=== PATIENT | male | born 1980 | race Caucasian/White ===

== ENCOUNTER 2019-09-30 17:35 | Inpatient (IN) | payer OTHER ==
[~2019-09-30] VITALS: Ht 180.3 cm; Wt 93.4 kg
[~2019-09-30 17:35] MED LIST: ADDERALL 20 MG20 M1 PO; HYDROCODONE-APA1 TAB PO; PERCOCET 10/3251 TA1 PO
[2019-09-30] MEDS ORDERED: LISINOPRIL10 MG PO (17:38)
[2019-09-30] MEDS ORDERED: FUROSEMIDE20 MG PO (17:38)
[2019-09-30] MEDS ORDERED: KLOR-CON 1010 MEQ PO (17:39)
--- NOTE | 2019-09-30 18:11 | NUR ---
PT REFUSED IV MORPHINE AT THIS TIME. PT STATES "MORPHINE DOESN'T WORK FOR ME. DILAUDID DOES." EDP NOTIFIED.
[2019-09-30 18:14] LABS: BASOPHILS 0.2 % (0-2); EOSINOPHILS 0.2 % (0-7); HEMATOCRIT 41.5 % (42.0-54.0); HEMOGLOBIN 14.3 g/dL (13.5-17.5); IMMATURE GRANULOCYTES 0.3 % (0-5); LYMPHOCYTES 12.1 % (15-50); MCH 41.1 pg (26.0-34.0); MCHC 34.5 g/dL (31.0-37.0); MCV 119.3 fL (80.0-100.0); MONOCYTES 4.7 % (2-11); NEUTROPHILS 82.5 % (40-80); PLATELET COUNT 205 10x3/uL (130-400); RBC 3.48 10x6/uL (4.20-6.10); RDW 14.6 % (11.5-14.5); WBC 18.8 10x3/uL (4.8-10.8)
[2019-09-30 18:20] VITALS: BP 145/55
--- NOTE | 2019-09-30 18:21 | NUR ---
PT SHIVERING , AND CRYING, VERY UPSET. EXPLAIN HE MIGHT BE SPIKING A TEMP. IT IS 99.5 AT THIS TIME. WILL CONT. TO MONITOR.
[2019-09-30 18:29] LABS: ALKALINE PHOSPHATASE 240 U/L (30-120); ALT (SGPT) 33 U/L (10-68); AMYLASE - SERUM 13 U/L (25-115); BILIRUBIN - TOTAL 2.22 mg/dL (0.2-1.3); CALC OSMOLALITY 267 mosm/kg (275-300); CALCIUM 9.6 mg/dL (8.5-10.1); CARBON DIOXIDE 32.7 mmol/L (21.0-32.0); CHLORIDE - SERUM 95 mmol/L (98-107); CREATININE - SERUM 0.8 mg/dL (0.6-1.3); GLUCOSE 142 mg/dL (74-106); PROTEIN - SERUM 7.2 g/dL (6.4-8.2); SODIUM 134 mmol/L (136-145); UREA NITROGEN 8 mg/dL (7-18); eGFR NON AFRICAN AMERICAN > 90 mL/min (90-120)
[2019-09-30 18:30] VITALS: BP 111/88
--- NOTE | 2019-09-30 18:30 | NUR ---
PT CRYING IN ROOM. PT SPOUSE AT NURSES STATION ASKING FOR PAIN MEDS FOR PT. RN SPOKE TO PT ABOUT ORDERED MORPHINE.
[2019-09-30 18:31] LABS: LIPASE 44 U/L (73-393); POTASSIUM - SERUM 2.6 mmol/L (3.5-5.1); TROPONIN-I < 0.017 ng/mL (0.000-0.060)
--- NOTE | 2019-09-30 18:55 | NUR ---
PT LEFT ED VIA STRETCHER FOR CT.
[2019-09-30 20:00] VITALS: BP 126/71
[2019-09-30 20:05] LABS: BILIRUBIN NEGATIVE (NEGATIVE); GLUCOSE NEGATIVE (NEGATIVE); KETONE MODERATE mg/dL (NEGATIVE); NITRITE NEGATIVE (NEGATIVE); UROBILINOGEN 4 mg/dL (NORMAL)
[2019-09-30 22:42] VITALS: BP 126/71; BMI 29.6
[2019-10-01] VITALS: BP 121/63
[2019-10-01 04:00] VITALS: BP 117/54; BP 119/66
--- NOTE | 2019-10-01 06:21 | NUR ---
CALL TO OFFICE SERVICE PICKED UP GIVEN INFORMATION FOR CONSULT. SERVICE WILL INFROM
[2019-10-01 06:50] LABS: BASOPHILS 0.1 % (0-2); EOSINOPHILS 0.3 % (0-7); HEMATOCRIT 38.9 % (42.0-54.0); HEMOGLOBIN 13.2 g/dL (13.5-17.5); IMMATURE GRANULOCYTES 0.2 % (0-5); LYMPHOCYTES 8.6 % (15-50); MCH 40.9 pg (26.0-34.0); MCHC 33.9 g/dL (31.0-37.0); MCV 120.4 fL (80.0-100.0); MEAN PLATELET VOLUME 10.4 fL (7.4-10.4); MONOCYTES 4.3 % (2-11); NEUTROPHILS 86.5 % (40-80); PLATELET COUNT 177 10x3/uL (130-400); RBC 3.23 10x6/uL (4.20-6.10); RDW 14.5 % (11.5-14.5); WBC 15.7 10x3/uL (4.8-10.8)
[2019-10-01 06:56] LABS: INR 1.47 (0.85-1.17); PROTIME 17.7 SECONDS (11.6-15.0)
--- NOTE | 2019-10-01 07:15 | NUR ---
BEDSIDE SHIFT REPORT RECEIVED, ASSESSMENT COMPLETE, BREATHING EVEN UNLABORED. CALLL LIGHT IN REACH, BED LOWEST POSITON, EMESIS BAG AT BEDSIDE,PT STATES HE IS NAUSEOUS WILL GIVE ZOFRAN ORDERED, IV TO LAC PATENT, WILL CONTINUE TO MONITOR
[2019-10-01 07:31] LABS: ALBUMIN 2.7 g/dL (3.4-5.0); ALKALINE PHOSPHATASE 226 U/L (30-120); ALT (SGPT) 27 U/L (10-68); BILIRUBIN - DIRECT 1.44 mg/dL (0.00-0.30); BILIRUBIN - INDIRECT 2.55 mg/dL (0.00-1.00); BILIRUBIN - TOTAL 3.99 mg/dL (0.2-1.3); CALC OSMOLALITY 266 mosm/kg (275-300); CALCIUM 9.6 mg/dL (8.5-10.1); CARBON DIOXIDE 32.9 mmol/L (21.0-32.0); CHLORIDE - SERUM 97 mmol/L (98-107); CREATINE KINASE 34 UL (21-232); CREATININE - SERUM 0.9 mg/dL (0.6-1.3); GLUCOSE 119 mg/dL (74-106); PROTEIN - SERUM 6.6 g/dL (6.4-8.2); SODIUM 134 mmol/L (136-145); UREA NITROGEN 8 mg/dL (7-18); eGFR NON AFRICAN AMERICAN > 90 mL/min (90-120)
[2019-10-01 07:37] LABS: POTASSIUM - SERUM 2.9 mmol/L (3.5-5.1)
[2019-10-01 09:02] VITALS: BP 133/81
[2019-10-01 12:41] VITALS: BP 131/84
[2019-10-01 13:16] LABS: HEMOGLOBIN 13.1 g/dL (13.5-17.5)
[2019-10-01 17:09] VITALS: BP 119/69
[2019-10-01 18:21] LABS: HEMATOCRIT 39.2 % (42.0-54.0); HEMOGLOBIN 13.3 g/dL (13.5-17.5)
[2019-10-01 21:20] VITALS: BP 133/77
[2019-10-02 01:02] LABS: HEMOGLOBIN 11.9 g/dL (13.5-17.5)
--- NOTE | 2019-10-02 01:52 | NUR ---
ALERT AND ORENTED X4 ABLE TO VOICE NEEDS AND WANTS TO STAFF. IV TO LEFT AC WITH NS AT 75ML/HR AND ZOFRAN AT 4.7 GAVE 40MEQ OF POTASSIUM FOR POASSIUM LEVEL OF 3.4 REDRAW WITH AM LABS. MORPHINE Q4 HR PRN FOR PAIN CONTROL. WATER AND CALLL LIGHT IN REACH.
[2019-10-02 04:00] VITALS: BP 117/64
[2019-10-02 05:06] LABS: HEMATOCRIT 36.2 % (42.0-54.0); HEMOGLOBIN 12.2 g/dL (13.5-17.5)
[2019-10-02 05:19] LABS: APTT 40.6 SECONDS (22.8-39.4); INR 1.54 (0.85-1.17); PROTIME 18.3 SECONDS (11.6-15.0)
[2019-10-02 05:33] LABS: % SATURATION 97 % (15-55); IRON 211 ug/dl (35-150); TOTAL IRON BIND CAPACITY 217 ug/dl (260-445)
[2019-10-02 05:35] LABS: UNSAT IRON BIND CAPACITY 6 ug/dl (150-375)
--- NOTE | 2019-10-02 07:23 | NUR ---
RECEIVED REPORT, REQUEST PAIN MEDS, CALL LIGHT IN REACH, NO S/S OF DISTRESS NOTED, BED LOWEST POSITION, WILL CONTINUE POC
[2019-10-02 09:12] VITALS: BP 119/75
[2019-10-02 09:45] LABS: ALBUMIN 2.6 g/dL (3.4-5.0); ALKALINE PHOSPHATASE 183 U/L (30-120); ALT (SGPT) 22 U/L (10-68); BILIRUBIN - TOTAL 2.78 mg/dL (0.2-1.3); CALCIUM 9.9 mg/dL (8.5-10.1); CARBON DIOXIDE 30.9 mmol/L (21.0-32.0); CHLORIDE - SERUM 100 mmol/L (98-107); CREATININE - SERUM 0.8 mg/dL (0.6-1.3); GLUCOSE 108 mg/dL (74-106); POTASSIUM - SERUM 3.3 mmol/L (3.5-5.1); PROTEIN - SERUM 6.3 g/dL (6.4-8.2); SODIUM 137 mmol/L (136-145); eGFR NON AFRICAN AMERICAN > 90 mL/min (90-120)
[2019-10-02 09:46] LABS: BASOPHILS 0.3 % (0-2); IMMATURE GRANULOCYTES 0.4 % (0-5); LYMPHOCYTES 15.8 % (15-50); MCH 40.5 pg (26.0-34.0); MCHC 33.2 g/dL (31.0-37.0); MCV 122.1 fL (80.0-100.0); MEAN PLATELET VOLUME 10.8 fL (7.4-10.4); MONOCYTES 3.6 % (2-11); NEUTROPHILS 78.9 % (40-80); PLATELET COUNT 158 10x3/uL (130-400); RBC 2.99 10x6/uL (4.20-6.10); RDW 14.6 % (11.5-14.5); WBC 10.9 10x3/uL (4.8-10.8)
[2019-10-02 09:48] LABS: CALC OSMOLALITY 275 mosm/kg (275-300); UREA NITROGEN 14 mg/dL (7-18)
[2019-10-02 13:56] VITALS: BP 125/78
[2019-10-02 13:57] VITALS: Ht 180.3 cm; Wt 93.4 kg
--- NOTE | 2019-10-02 14:00 | NUR ---
RECEIVED BACK TO FLOOR FROM EGD, A&O, DENIES NEEDS. WILL CONTINUE POC
[2019-10-02 18:45] VITALS: BP 113/68
--- NOTE | 2019-10-02 19:00 | NUR ---
BEDSIDE REPORT RECEIVED AND CARE OF PT ASSUMED. PT LYING IN LOW WARREN'S POSITION WATCHING TV. IV TO LEFT FA PATENT WITH NS INFUSING AT 75 ML/HR, AND ZOFRAN INFUSING AT 4.7 ML/HR. WILL MONITOR FOR NEEDS.
--- NOTE | 2019-10-02 19:36 | NUR ---
I have reviewed this patient and I concur with the Shift Assessment completed by the Licensed Practical Nurse today this shift.
[2019-10-02 20:00] VITALS: BP 114/72
--- NOTE | 2019-10-02 20:58 | NUR ---
HS MEDICATIONS GIVEN TO INCLUDE MORPHINE PER REQUEST FOR PAIN. WILL MONITOR FOR EFFECTIVENESS.
[2019-10-03 04:00] VITALS: BP 120/68
[2019-10-03 07:18] LABS: BASOPHILS 0.3 % (0-2); EOSINOPHILS 1.4 % (0-7); HEMATOCRIT 34.3 % (42.0-54.0); HEMOGLOBIN 11.7 g/dL (13.5-17.5); IMMATURE GRANULOCYTES 0.1 % (0-5); LYMPHOCYTES 23.2 % (15-50); MCH 40.8 pg (26.0-34.0); MCHC 34.1 g/dL (31.0-37.0); MEAN PLATELET VOLUME 11.7 fL (7.4-10.4); MONOCYTES 4.5 % (2-11); NEUTROPHILS 70.5 % (40-80); PLATELET COUNT 185 10x3/uL (130-400); RBC 2.87 10x6/uL (4.20-6.10); RDW 14.5 % (11.5-14.5)
[2019-10-03 07:21] LABS: MCV 119.5 fL (80.0-100.0); WBC 7.9 10x3/uL (4.8-10.8)
[2019-10-03 07:34] LABS: CALC OSMOLALITY 272 mosm/kg (275-300); CALCIUM 9.3 mg/dL (8.5-10.1); CHLORIDE - SERUM 100 mmol/L (98-107); CREATININE - SERUM 0.7 mg/dL (0.6-1.3); GLUCOSE 101 mg/dL (74-106); MAGNESIUM - SERUM 1.1 mg/dL (1.8-2.4); PHOSPHOROUS 1.7 mg/dL (2.5-4.9); POTASSIUM - SERUM 3.1 mmol/L (3.5-5.1); SODIUM 136 mmol/L (136-145); UREA NITROGEN 14 mg/dL (7-18); eGFR NON AFRICAN AMERICAN > 90 mL/min (90-120)
--- NOTE | 2019-10-03 07:47 | NUR ---
INCENTIVE SPIROMETRY AT BEDSIDE. USED X 5 TIMES AND ABLE TO PULL 2250 CC.M NO COMPLAINTS AT PRESENT
[2019-10-03 09:01] VITALS: BP 108/64
--- NOTE | 2019-10-03 11:41 | NUR ---
PT STATES HE IS STILL AT A 7/10 FOR PAIN CONTROL AFTER MS. SITTING UP IN BED AND DOSING OFF WITH TALKING. NO GRIMACING NOTED
[2019-10-03 11:59] VITALS: BP 112/73
[2019-10-03 16:41] VITALS: BP 105/63
[2019-10-03 20:00] VITALS: BP 113/70
[2019-10-04] VITALS: BP 114/64
--- NOTE | 2019-10-04 03:28 | NUR ---
PT RESTING IN BED. EYES CLOSED. NO SIGNS OF DISTRESS. BREATHING EVEN AND UNLABORED. IV SITE LT FA DRESSING CLEAN DRY AND INTACT. NO SIGNS OF INFECTION OR INFULTRATION. IV FLUIDS GOING. SKIN CLEAN DRY AND INTACT. LUNG SOUNDS CLEAR. BOWEL SOUNDS ACTIVE. ABD DISTENDED. WILL CONTINUE PLAN OF CARE. CALL LIGHT IN REACH. BED LOWERED AND LOCKED. BED RAILS UPX1.
[2019-10-04 04:00] VITALS: BP 108/62
[2019-10-04 04:47] LABS: BASOPHILS 0.3 % (0-2); EOSINOPHILS 1.1 % (0-7); HEMATOCRIT 32.6 % (42.0-54.0); HEMOGLOBIN 11.1 g/dL (13.5-17.5); IMMATURE GRANULOCYTES 0.3 % (0-5); LYMPHOCYTES 26.3 % (15-50); MCH 40.2 pg (26.0-34.0); MCV 118.1 fL (80.0-100.0); MEAN PLATELET VOLUME 10.4 fL (7.4-10.4); MONOCYTES 6.2 % (2-11); NEUTROPHILS 65.8 % (40-80); RBC 2.76 10x6/uL (4.20-6.10); RDW 14.5 % (11.5-14.5); WBC 6.4 10x3/uL (4.8-10.8)
[2019-10-04 05:08] LABS: PLATELET COUNT 128 10x3/uL (130-400)
--- NOTE | 2019-10-04 05:11 | NUR ---
I have reviewed this patient and I concur with the Shift Assessment completed by the Licensed Practical Nurse today this shift.
[2019-10-04 05:30] LABS: CALC OSMOLALITY 268 mosm/kg (275-300); CALCIUM 9.1 mg/dL (8.5-10.1); CARBON DIOXIDE 27.2 mmol/L (21.0-32.0); CHLORIDE - SERUM 99 mmol/L (98-107); CREATININE - SERUM 0.7 mg/dL (0.6-1.3); GLUCOSE 97 mg/dL (74-106); MAGNESIUM - SERUM 1.1 mg/dL (1.8-2.4); PHOSPHOROUS 1.6 mg/dL (2.5-4.9); SODIUM 134 mmol/L (136-145); UREA NITROGEN 14 mg/dL (7-18); eGFR NON AFRICAN AMERICAN > 90 mL/min (90-120)
--- NOTE | 2019-10-04 06:50 | NUR ---
A&O SITTING UP IN BED. NO C/O PAIN. NO S/S OF ACUTE DISTRESS NOTED. IV TO LEFT FOREARM, NS INFUSING @ 75ML/HR. SITE PATENT WITHOUT REDNESS OR SWELLING. ABDOMEN DISTENDED AND TENDER. MAGNESIUM 1.1, PHOSPHORUS 1.6, AND POTASSIUM 3.0 THIS AM. WILL FOLLOW ELECTROLYTE PROTOCOL. DENIES ANY NEEDS AT THIS TIME. CALL LIGHT IN REACH. WILL CONTINUE TO MONITOR.
[2019-10-04 08:38] VITALS: BP 112/71
[2019-10-04 12:41] VITALS: BP 107/51
[2019-10-04] MEDS ORDERED: NICODERM CQ1 EAC1 TRANSDERM (15:47)
[2019-10-04] MEDS ORDERED: FLORAJEN3 CAPS460 MG PO (15:47)
[2019-10-04] MEDS ORDERED: CARAFATE1 G PO (15:47)
[2019-10-04] MEDS ORDERED: PROTONIX40 MG PO (15:48)
[2019-10-04] MEDS ORDERED: FLAGYL500 MG PO (15:48)
[2019-10-04] MEDS ORDERED: LEVAQUIN750 MG PO (15:48)
[2019-10-04 17:00] VITALS: BP 119/74
--- NOTE | 2019-10-04 18:01 | NUR ---
DISCHARGED PATIENT HOME WITH FAMILY. DISCONTINUED IV, CATHETER TIP INTACT. WENT OVER DISCHARGE INSTRUCTIONS WITH PATIENT, VERBALIZED UNDERSTANDING. DENIES ANYTHING FURTHER.
== END 2019-10-04 18:03 | disposition home or self-care (01) | DRG 391 ==
LOC: D.ER 17:35 → D.MS 20:57
PROVIDERS: Family Medicine; Family Medicine Adult Medicine; Internal Medicine Gastroenterology; ADMIT Family Medicine; ATTEND Family Medicine
PROC: 0DB68ZX Excision of Stomach, Via Natural or Artificial Opening Endoscopic, Diagnostic (ICD-10-PCS; 2019-10-02)
PROC: 0DB48ZX Excision of Esophagogastric Junction, Via Natural or Artificial Opening Endoscopic, Diagnostic (ICD-10-PCS; 2019-10-02)
PROC: 0DB98ZX Excision of Duodenum, Via Natural or Artificial Opening Endoscopic, Diagnostic (ICD-10-PCS; principal; 2019-10-02 13:03)
DX: K52.9 Noninfective gastroenteritis and colitis, unspecified (principal); K29.71 Gastritis, unspecified, with bleeding; K29.81 Duodenitis with bleeding; E87.1 Hypo-osmolality and hyponatremia; D53.9 Nutritional anemia, unspecified; E87.6 Hypokalemia; I10 Essential (primary) hypertension; K21.0 Gastro-esophageal reflux disease with esophagitis; K44.9 Diaphragmatic hernia without obstruction or gangrene

== ENCOUNTER → 2020-06-05 17:27 | Outpatient (CLI) | payer OTHER ==
[2020-02-09 09:53] VITALS: BMI 29.3
[~2020-06-05 17:27] MED LIST changes: +CARAFATE1 G PO; +FLAGYL500 MG PO; +FLORAJEN3 CAPS460 MG PO; +FUROSEMIDE20 MG PO; +KLOR-CON 1010 MEQ PO; +LEVAQUIN750 MG PO; +LEVOFLOXACIN500 MG PO; +LISINOPRIL10 MG PO; +NICODERM CQ1 EAC1 TRANSDERM; +NORCO 7.5-3251 EACH PO; +PROTONIX40 MG PO; +ZOFRAN ODT4 MG/UDTAB PO
[2020-06-05 18:05] LABS: CALC OSMOLALITY 263 mosm/kg (275-300); CALCIUM 10.9 mg/dL (8.5-10.1); CARBON DIOXIDE 28.8 mmol/L (21.0-32.0); CHLORIDE - SERUM 97 mmol/L (98-107); GLUCOSE 109 mg/dL (74-106); SODIUM 133 mmol/L (136-145); UREA NITROGEN 4 mg/dL (7-18); eGFR NON AFRICAN AMERICAN 87 mL/min (90-120)
[2020-06-05 18:36] LABS: POTASSIUM - SERUM 2.5 mmol/L (3.5-5.1)
== END | disposition home or self-care (01) ==
LOC: D.LABREF 17:27
PROVIDERS: ATTEND Family Medicine
DX: K72.90 Hepatic failure, unspecified without coma (principal); K70.30 Alcoholic cirrhosis of liver without ascites

== ENCOUNTER → 2020-08-14 17:41 | Outpatient (CLI) | payer OTHER ==
[2020-02-09 09:53] VITALS: BMI 29.3
[2020-08-14 17:57] LABS: BASOPHILS 0.7 % (0-2); EOSINOPHILS 2.8 % (0-7); HEMATOCRIT 38.2 % (42.0-54.0); HEMOGLOBIN 13.1 g/dL (13.5-17.5); LYMPHOCYTES 33.6 % (15-50); MCH 33.2 pg (26.0-34.0); MCHC 34.4 g/dL (31.0-37.0); MCV 96.5 fL (80.0-100.0); MONOCYTES 10.3 % (2-11); NEUTROPHILS 52.6 % (40-80); PLATELET COUNT 146 10x3/uL (130-400); RBC 3.96 10x6/uL (4.20-6.10); RDW 14.9 % (11.5-14.5); WBC 9.1 10x3/uL (4.8-10.8)
[2020-08-14 18:38] LABS: CALC OSMOLALITY 276 mosm/kg (275-300); CALCIUM 10.8 mg/dL (8.5-10.1); CARBON DIOXIDE 29.6 mmol/L (21.0-32.0); CHLORIDE - SERUM 102 mmol/L (98-107); GLUCOSE 102 mg/dL (74-106); POTASSIUM - SERUM 3.1 mmol/L (3.5-5.1); SODIUM 140 mmol/L (136-145); UREA NITROGEN 6 mg/dL (7-18); eGFR NON AFRICAN AMERICAN 87 mL/min (90-120)
== END | disposition home or self-care (01) ==
LOC: D.LABREF 17:41
PROVIDERS: ATTEND Family Medicine
DX: K72.90 Hepatic failure, unspecified without coma (principal); K70.31 Alcoholic cirrhosis of liver with ascites; E87.6 Hypokalemia

== ENCOUNTER → 2020-09-12 11:01 | Outpatient (CLI) | payer OTHER ==
[2020-02-09 09:53] VITALS: BMI 29.3
[2020-09-12 12:42] LABS: ALBUMIN 2.8 g/dL (3.4-5.0); ALKALINE PHOSPHATASE 184 U/L (30-120); ALT (SGPT) 21 U/L (10-68); BILIRUBIN - TOTAL 2.27 mg/dL (0.2-1.3); CALC OSMOLALITY 290 mosm/kg (275-300); CALCIUM 10.6 mg/dL (8.5-10.1); CARBON DIOXIDE 30.6 mmol/L (21.0-32.0); CHLORIDE - SERUM 109 mmol/L (98-107); CREATININE - SERUM 0.8 mg/dL (0.6-1.3); GLUCOSE 114 mg/dL (74-106); MAGNESIUM - SERUM 1.7 mg/dL (1.8-2.4); PROTEIN - SERUM 6.6 g/dL (6.4-8.2); SODIUM 147 mmol/L (136-145); UREA NITROGEN 6 mg/dL (7-18); eGFR NON AFRICAN AMERICAN > 90 mL/min (90-120)
[2020-09-12 13:48] LABS: POTASSIUM - SERUM 2.9 mmol/L (3.5-5.1)
== END | disposition home or self-care (01) ==
LOC: D.LABREF 11:01
PROVIDERS: ATTEND Family Medicine
DX: K52.9 Noninfective gastroenteritis and colitis, unspecified (principal); K72.90 Hepatic failure, unspecified without coma